=== PATIENT | male | born 1950 | race Caucasian/White ===

== ENCOUNTER 2016-05-20 19:41 | Emergency (ER) | payer SELFPAY ==
[2016-05-20 20:40] VITALS: BMI 31.8
[2016-05-20] MEDS ORDERED: Oxycodone/Acetaminophen 5/325 mg Tab PO STA (21:31)
--- NOTE | 2016-05-20 21:46 | ED PDOC ---
Arrival/HPI - General Chief Complaint: Back Pain Time Seen by Provider: 05/20/16 21:05 Historian: Patient, Family - History of Present Illness Narrative History of Present Illness (Text): 05/20/16 21:41 Gracie Willis is a 66 year old male, with a history of CAD, hypertension, asthma, and GERD, presents to the emergency department complaining of intermittent left lower back and flank pain throughout the day. Reports that pain initially presented with a non-productive cough and resolved transiently in the afternoon. However, states that back pain presented again at 5:30 p.m. which was worsened with coughing and deep inspirations. Denies any chest pain. Denies fever, chills, headache, dizziness, shortness of breath, nausea, vomiting , diarrhea, or any other complaints at this time. Time/Duration: 24 hours Symptom Onset: Gradual Symptom Course: Intermittent Severity Level: Mild Activities at Onset: Light Context: Home Past Medical History - Provider Review Nursing Documentation Reviewed: Yes - Infectious Disease Hx of Infectious Diseases: None - Tetanus Immunization Tetanus Immunization: Unknown - Cardiac Hx Cardiac Disorders: Yes Hx Hypertension: Yes - Pulmonary Hx Respiratory Disorders: Yes Hx Asthma: Yes - Neurological Hx Neurological Disorder: No - HEENT Hx HEENT Disorder: No (WEARS RX GLASSES) - Renal Hx Renal Disorder: No - Endocrine/Metabolic Hx Endocrine Disorders: No - Hematological/Oncological Hx Blood Disorders: No - Integumentary Hx Dermatological Disorder: No - Musculoskeletal/Rheumatological Hx Musculoskeletal Disorders: Yes Hx Falls: No Hx Fractures: Yes (LEFT THUMB WITH METAL IMPLANT) - Gastrointestinal Hx Gastrointestinal Disorders: Yes (CHRONS?) Hx Crohn's Disease: Yes Hx Gastroesophageal Reflux: Yes - Genitourinary/Gynecological Hx Genitourinary Disorders: No - Psychiatric Hx Anxiety: Yes Hx Depression: No Hx Emotional Abuse: No Hx Physical Abuse: No Hx Substance Use: No - Past Surgical History Past Surgical History: No Previous - Surgical History Hx Orthopedic Surgery: Yes (left thumb) Other/Comment: Tonsillectomy. - Anesthesia Hx Anesthesia: Yes - Suicidal Assessment Feels Threatened In Home Enviroment: No Family/Social History - Physician Review Nursing Documentation Reviewed: Yes Family/Social History: No Known Family HX Smoking Status: Former Smoker Hx Alcohol Use: No Hx Substance Use: No Hx Substance Use Treatment: No Allergies/Home Meds Allergies/Adverse Reactions: Allergies No Known Allergies Allergy (Verified 03/13/16 16:48) Home Medications: Home Meds Medication Instructions Recorded Confirmed Aspirin [Ecotrin] 325 mg PO DAILY 12/28/13 02/04/14 Famotidine 20 mg PO DAILY 12/28/13 02/04/14 Simvastatin 20 mg PO DIN 12/28/13 02/04/14 Alprazolam [Xanax] 1 tab PO PRN PRN 02/04/14 02/04/14 Review of Systems - Physician Review All systems were reviewed & negative as marked: Yes - Review of Systems Constitutional: Normal. absent: Fatigue, Fevers Respiratory: Cough. absent: SOB Cardiovascular: Normal. absent: Chest Pain, Palpitations Gastrointestinal: absent: Abdominal Pain, Diarrhea, Nausea, Vomiting Genitourinary Male: absent: Dysuria Musculoskeletal: Back Pain (left flank and left lower back pain ) Neurological: Normal. absent: Headache, Dizziness Psychiatric: Normal Physical Exam Vital Signs Reviewed: Yes Vital Signs Temp Pulse Resp BP Pulse Ox 05/21/16 00:33 98.4 F 77 17 127/83 97 05/20/16 22:15 98 F 84 18 138/90 98 05/20/16 20:44 98.2 F 05/20/16 20:41 91 H 18 120/75 97 Temperature: Afebrile Blood Pressure: Normal Pulse: Regular Respiratory Rate: Normal Appearance: Positive for: Well-Appearing, Non-Toxic, Comfortable Pain Distress: None Mental Status: Positive for: Alert and Oriented X 3 - Systems Exam Head: Present: Atraumatic, Normocephalic Pupils: Present: PERRL Extroacular Muscles: Present: EOMI Conjunctiva: Present: Normal Respiratory/Chest: Present: Clear to Auscultation, Good Air Exchange. No: Respiratory Distress, Accessory Muscle Use Cardiovascular: Present: Regular Rate and Rhythm, Normal S1, S2. No: Murmurs Abdomen: Present: Normal Bowel Sounds. No: Tenderness, Distention, Peritoneal Signs Back: Present: Normal Inspection. No: CVA Tenderness, Midline Tenderness, Paraspinal Tenderness Upper Extremity: Present: Normal Inspection. No: Cyanosis, Edema Lower Extremity: Present: Normal Inspection. No: Edema Neurological: Present: GCS=15, CN II-XII Intact, Speech Normal Skin: Present: Warm, Dry, Normal Color. No: Rashes Psychiatric: Present: Alert, Oriented x 3, Normal Insight, Normal Concentration Medical Decision Making ED Course and Treatment: 05/20/16 21:48 Impression: A 66 year old male who presents to the emergency department complaining of left flank pain and left lower back pain since earlier today. Plan: -- CT Chest and Abdomen pelvis -- Chest X-ray -- Percocet -- Urinalysis -- Reassess and disposition Progress Notes: 05/21/16 00:05 CT Abdomen Pelvis reviewed: IMPRESSION: 1. No CT evidence of urolithiasis. CT Chest results reviewed: IMPRESSION: Pulmonary nodules. For low-risk patients, no follow-up is necessary. For high- risk patients (smoking history or other known risk factors) recommend CT at 12 months and if unchanged, no further follow-up Patient states that symptoms have improved markedly post treatment. Patient is stable to be discharged home. Patient is advised to present back to emergency department for worsening symptoms and follow up with PMD within few days. Re-evaluation Time: 00:20 Reassessment Condition: Re-examined, Improved - Lab Interpretations Lab Results: Lab Results 05/20/16 21:50: Urine Color Yellow, Urine Appearance Slight-cloudy, Urine pH 7.0 , Ur Specific [place] 1.015, Urine Protein Negative, Urine Glucose (UA) Negative , Urine Ketones Negative, Urine Blood Trace-intact H, Urine Nitrate Negative, Urine Bilirubin Negative, Urine Urobilinogen 0.2, Ur Leukocyte Esterase Trace H , Urine RBC 1 - 3, Urine WBC 1 - 3, Ur Epithelial Cells 0 - 2, Urine Other Usperm I have reviewed the lab results: Yes - RAD Interpretation Narrative RAD Interpretations (Text): EXAM: CT Chest Without Intravenous Contrast. FINDINGS: Lungs: Minimal atelectasis. No consolidation. Several pulmonary nodules, up to 0.4 cm. Pleural space: No pneumothorax. No significant effusion. Heart: No cardiomegaly. No significant pericardial effusion. Bones/joints: No acute fracture. Soft tissues: Unremarkable. Vasculature: Unremarkable. No thoracic aortic aneurysm. Lymph nodes: No pathologically enlarged lymph nodes. IMPRESSION: 1. Pulmonary nodules. For low-risk patients, no follow-up is necessary. For high -risk patients (smoking history or other known risk factors) recommend CT at 12 months and if unchanged, no further follow-up. 2. Incidental/non-acute findings are described above. EXAM: CT Abdomen and Pelvis Without Intravenous Contrast. FINDINGS: ABDOMEN: Liver: Unremarkable. Gallbladder and bile ducts: No calcified stones. No ductal dilation. Pancreas: Unremarkable. No ductal dilation. Spleen: No splenomegaly. Adrenals: No mass. Kidneys and ureters: RIGHT renal cyst. No renal calculi. No hydronephrosis. Stomach and bowel: No definite mural thickening. Few minimally distended loops of small bowel, likely ileus. Appendix: Normal caliber. No inflammation. PELVIS: Bladder: Unremarkable. No stones. Reproductive: Enlarged prostate gland. ABDOMEN and PELVIS: Intraperitoneal space: No significant fluid collection. No free air. Bones/joints: No acute fracture. Soft tissues: Tiny umbilical hernia containing fat. Small RIGHT inguinal hernia containing fat. Vasculature: Mild atherosclerotic disease. No abdominal aortic aneurysm. Lymph nodes: No pathologically enlarged lymph nodes. IMPRESSION: 1. No CT evidence of urolithiasis. 2. Incidental/non-acute findings are described above. Radiology Orders: 05/20/16 22:12 CHEST,ABDOMEN, PELVIS W/O CONT [CT] Stat Discharging Machine Operator: Radiologist - Medication Orders Current Medication Orders: Discontinued Medications Ketorolac Tromethamine (Toradol) 30 mg IM ONCE ONE Stop: 05/20/16 22:48 Last Admin: 05/20/16 23:09 Dose: 30 MG IM Administration Charges Document 05/20/16 23:09 [facility] (Rec: 05/20/16 23:09 [id number] Injection Site MAR Injection Site Right Deltoid Charges for Administration # of IM Administrations 1 Morphine Sulfate (Morphine) 2 mg IM STAT STA Stop: 05/20/16 23:36 Last Admin: 05/21/16 00:18 Dose: 2 MG MAR Pain Assessment Document 05/21/16 00:18 [facility] (Rec: 05/21/16 00:18 [id number] Pain Reassessment Is this a pain reassessment? No Sleep Is patient sleeping during reassessment? No Presence of Pain Presence of Pain Yes Pain Scale Used Pain Scale Used Numeric Location Left, Right or Bilateral Left Upper or Lower Lower Pain Location Body Site Back Description Description Acute Intensity of Pain at present 8 Acceptable Level of Pain 0 Pain Behavior Irritability Rubbing Site Restlessness IM Administration Charges Document 05/21/16 00:18 [facility] (Rec: 05/21/16 00:18 [facility] [id number]) Charges for Administration # of IM Administrations 1 Oxycodone/Acetaminophen (Percocet 5/325 Mg Tab) 1 tab PO STAT STA Stop: 05/20/16 21:32 Last Admin: 05/20/16 21:41 Dose: 1 TAB - Scribe Statement The provider has reviewed the documentation as recorded by the Tk Wade Provider Attestation: All medical record entries made by the Tk were at my direction and personally dictated by me. I have reviewed the chart and agree that the record accurately reflects my personal performance of the history, physical exam, medical decision making, and the department course for this patient. I have also personally directed, reviewed, and agree with the discharge instructions and disposition. Disposition/Present on Arrival - Present on Arrival Any Indicators Present on Arrival: No History of DVT/PE: No History of Uncontrolled Diabetes: No Urinary Catheter: No History of Decub. Ulcer: No History Surgical Site Infection Following: None - Disposition Have Diagnosis and Disposition been Completed?: Yes Diagnosis: Back pain Disposition: HOME/ ROUTINE Disposition Time: 00:21 Patient Problems: Current Active Problems Problem Status Diagnosed Status asthmaticus Acute Discharge Instructions (ExitCare): Back Pain (ED) Prescriptions: Cyclobenzaprine [Cyclobenzaprine HCl] 10 mg PO TID #21 tab oxyCODONE/Acetaminophen [Percocet 5/325 mg Tab] 1 ea PO QID #12 tab Referrals: Keshia Green APN-[facility] [Primary Care Provider] - Follow up with primary
[2016-05-20 22:04] LABS: URINE BILIRUBIN NEGATIVE (NEGATIVE); URINE BLOOD TRACE-INTACT (NEGATIVE); URINE GLUCOSE (UA) NEGATIVE (NEGATIVE); URINE KETONE NEGATIVE (NEGATIVE); URINE LEUKOCYTE ESTERASE TRACE Leu/uL (NEGATIVE); URINE PROTEIN NEGATIVE mg/dL (<30 mg/dL); URINE UROBILINOGEN 0.2 E.U./dL (<1 E.U./dL)
[2016-05-20 22:06] LABS: URINE APPEARANCE SLIGHT-CLOUDY (CLEAR); URINE COLOR YELLOW (YELLOW)
[2016-05-20 22:47] LABS: URINE EPITHELIAL CELLS 0 - 2 /hpf (0-5)
[2016-05-20] MEDS ORDERED: Morphine 2 mg/ml ISec IM STA (23:35)
--- NOTE | 2016-05-20 23:56 | CT ---
EXAM: CT Chest Without Intravenous Contrast. CLINICAL HISTORY: 66 years old, male; Pain; Abdominal pain; Chest pain; Type not specified; Additional info: R/O stone TECHNIQUE: Axial computed tomography images of the chest without intravenous contrast. This CT exam was performed using one or more of the following dose reduction techniques: automated exposure control, adjustment of the mA and/or kV according to patient size, and/or use of iterative reconstruction technique. Coronal and sagittal reformatted images were created and reviewed. COMPARISON: No relevant prior studies available. FINDINGS: Lungs: Minimal atelectasis. No consolidation. Several pulmonary nodules, up to 0.4 cm. Pleural space: No pneumothorax. No significant effusion. Heart: No cardiomegaly. No significant pericardial effusion. Bones/joints: No acute fracture. Soft tissues: Unremarkable. Vasculature: Unremarkable. No thoracic aortic aneurysm. Lymph nodes: No pathologically enlarged lymph nodes. IMPRESSION: 1. Pulmonary nodules. For low-risk patients, no follow-up is necessary. For high-risk patients (smoking history or other known risk factors) recommend CT at 12 months and if unchanged, no further follow-up. 2. Incidental/non-acute findings are described above. EXAM: CT Abdomen and Pelvis Without Intravenous Contrast. CLINICAL HISTORY: 66 years old, male; Pain; Abdominal pain; Chest pain; Type not specified; Additional info: R/O stone TECHNIQUE: Axial computed tomography images of the abdomen and pelvis without intravenous contrast. This CT exam was performed using one or more of the following dose reduction techniques: automated exposure control, adjustment of the mA and/or kV according to patient size, and/or use of iterative reconstruction technique. Coronal and sagittal reformatted images were created and reviewed. COMPARISON: No relevant prior studies available. FINDINGS: ABDOMEN: Liver: Unremarkable. Gallbladder and bile ducts: No calcified stones. No ductal dilation. Pancreas: Unremarkable. No ductal dilation. Spleen: No splenomegaly. Adrenals: No mass. Kidneys and ureters: RIGHT renal cyst. No renal calculi. No hydronephrosis. Stomach and bowel: No definite mural thickening. Few minimally distended loops of small bowel, likely ileus. Appendix: Normal caliber. No inflammation. PELVIS: Bladder: Unremarkable. No stones. Reproductive: Enlarged prostate gland. ABDOMEN and PELVIS: Intraperitoneal space: No significant fluid collection. No free air. Bones/joints: No acute fracture. Soft tissues: Tiny umbilical hernia containing fat. Small RIGHT inguinal hernia containing fat. Vasculature: Mild atherosclerotic disease. No abdominal aortic aneurysm. Lymph nodes: No pathologically enlarged lymph nodes. IMPRESSION: 1. No CT evidence of urolithiasis. 2. Incidental/non-acute findings are described above.
[2016-05-21 00:33] VITALS: BP 127/83; PULSE 77; RESP 17; TEMP 98.4; O2SAT 97
== END 2016-05-21 00:37 | disposition home or self-care (01) ==
LOC: ED 19:41
DX: M54.9 Dorsalgia, unspecified (principal); I10 Essential (primary) hypertension; K21.9 Gastro-esophageal reflux disease without esophagitis; Z87.891 Personal history of nicotine dependence
CPT/HCPCS: 71250; 74176; 81001; 87086; 96372; 99283; J1885; J2270

== ENCOUNTER 2017-08-29 12:18 | Inpatient (IN) | payer MEDICAID, OTHER ==
--- NOTE | 2017-08-29 12:34 | ED PDOC ---
Arrival/HPI <Earsto Gutierrez - Last Filed: 08/29/17 12:34> - General Historian: Patient - History of Present Illness Time/Duration: Other (10 days) Symptom Onset: Gradual Symptom Course: Worsening Activities at Onset: Rest, Light Context: Home <José Manuel Sullivan - Last Filed: 08/29/17 14:21> - General Chief Complaint: Shortness Of Breath Time Seen by Provider: 08/29/17 12:33 - History of Present Illness Narrative History of Present Illness (Text): 08/29/17 12:40 A 67 year old male, whose past medical history includes asthma, presents to the emergency department with daughter who served as the product safety professional, with a complaint of 10 day duration worsening shortness of breath. He states that he has been having a productive cough with no relief of his symptoms despite taking his nebulizer treatments and Albuterol and Ventolin inhalers at home. He also complains of urinary frequency. He notes that he is a non-smoker, and quit smoking 7 years ago. The patient denies fevers, chills, headache, dizziness, chest pain, dyspnea on exertion, abdominal pain, nausea, vomiting, diarrhea, back pain, neck pain, bowel changes, or any other complaint. (José Manuel Sullivan) Past Medical History - Infectious Disease Hx of Infectious Diseases: None - Tetanus Immunization Tetanus Immunization: Unknown - Cardiac Hx Cardiac Disorders: Yes Hx Hypertension: Yes - Pulmonary Hx Respiratory Disorders: Yes Hx Asthma: Yes - Neurological HX Cerebrovascular Accident: Yes - HEENT Hx HEENT Disorder: No (WEARS RX GLASSES) - Renal Hx Renal Disorder: No - Endocrine/Metabolic Hx Endocrine Disorders: No - Hematological/Oncological Hx Blood Disorders: No - Integumentary Hx Dermatological Disorder: No - Musculoskeletal/Rheumatological Hx Musculoskeletal Disorders: Yes Hx Falls: No Hx Fractures: Yes (LEFT THUMB WITH METAL IMPLANT) - Gastrointestinal Hx Gastrointestinal Disorders: Yes (CHRONS?) Hx Crohn's Disease: Yes Hx Gastroesophageal Reflux: Yes - Genitourinary/Gynecological Hx Genitourinary Disorders: No - Psychiatric Hx Depression: No Hx Emotional Abuse: No Hx Physical Abuse: No Hx Substance Use: No - Past Surgical History Past Surgical History: No Previous - Surgical History Hx Orthopedic Surgery: Yes (left thumb) Other/Comment: Tonsillectomy. - Anesthesia Hx Anesthesia: Yes - Suicidal Assessment Feels Threatened In Home Enviroment: No <Erasto Gutierrez Last Filed: 08/29/17 12:34> - Provider Review Nursing Documentation Reviewed: Yes <José Manuel Sullivan Last Filed: 08/29/17 14:21> Family/Social History Smoking Status: Former Smoker Hx Alcohol Use: No Hx Substance Use: No Hx Substance Use Treatment: No <Erasto Gutierrez Last Filed: 08/29/17 12:34> - Physician Review Nursing Documentation Reviewed: Yes Family/Social History: No Known Family HX <José Manuel Sullivan Last Filed: 08/29/17 14:21> Allergies/Home Meds <Erasto Gutierrez Last Filed: 08/29/17 12:34> <José Manuel Sullivan Filed: 08/29/17 14:21> Allergies/Adverse Reactions: Allergies No Known Allergies Allergy (Verified 03/13/16 16:48) Home Medications: Home Meds Medication Instructions Recorded Confirmed Aspirin [Ecotrin] 325 mg PO DAILY 12/28/13 08/29/17 Famotidine [Pepcid] 20 mg PO DAILY 08/29/17 08/29/17 Lisinopril [Zestril] 10 mg PO DAILY 08/29/17 08/29/17 Metoprolol Succinate [Toprol Xl] 25 mg PO DAILY 08/29/17 08/29/17 Review of Systems - Physician Review All systems were reviewed & negative as marked: Yes - Review of Systems Constitutional: absent: Fevers, Night Sweats Respiratory: SOB, Cough Cardiovascular: absent: Chest Pain Gastrointestinal: absent: Abdominal Pain, Stool Changes, Diarrhea, Nausea, Vomiting Genitourinary Male: Frequency Musculoskeletal: absent: Back Pain, Neck Pain Neurological: absent: Headache, Dizziness <José Manuel Sullivan Last Filed: 08/29/17 14:21> Physical Exam Vital Signs Reviewed: Yes Temperature: Afebrile Blood Pressure: Hypertensive Pulse: Tachycardic Respiratory Rate: Normal Appearance: Positive for: Well-Appearing, Non-Toxic, Comfortable Pain Distress: None Mental Status: Positive for: Alert and Oriented X 3 - Systems Exam Head: Present: Atraumatic, Normocephalic Pupils: Present: PERRL Extroacular Muscles: Present: EOMI Conjunctiva: Present: Normal Mouth: Present: Moist Mucous Membranes Neck: Present: Normal Range of Motion Respiratory/Chest: Present: Respiratory Distress (Moderate distress.), Accessory Muscle Use, Wheezes (Severe wheezing throughout), Decreased Breath Sounds, Retracting, Rhonchi (severe rhonchi throughout) Cardiovascular: Present: Regular Rate and Rhythm, Normal S1, S2. No: Murmurs Abdomen: No: Tenderness, Distention, Peritoneal Signs Back: Present: Normal Inspection Upper Extremity: Present: Normal Inspection. No: Cyanosis, Edema Lower Extremity: Present: Normal Inspection. No: Edema Neurological: Present: GCS=15, CN II-XII Intact, Speech Normal Skin: Present: Warm, Dry, Normal Color. No: Rashes Psychiatric: Present: Alert, Oriented x 3, Normal Insight, Normal Concentration <José Manuel Sullivan - Last Filed: 08/29/17 14:21> Vital Signs Temp Pulse Resp BP Pulse Ox 08/29/17 13:15 97 H 18 116/81 99 08/29/17 13:00 24 99 08/29/17 12:53 99.5 F 08/29/17 12:25 98.0 F 104 H 20 124/112 H 94 L Medical Decision Making <Erasto Gutierrez - Last Filed: 08/29/17 12:34> - Lab Interpretations I have reviewed the lab results: Yes - RAD Interpretation Spool Fixer: ED Physician - EKG Interpretation Interpreted by ED Physician: Yes Type: 12 lead EKG <José Manuel Sullivan - Last Filed: 08/29/17 14:21> ED Course and Treatment: 08/29/17 12:51 Impression: A 67 year old male presents to the emergency department with a complaint of 10 day duration worsening shortness of breath and productive cough. Plan: -- EKG -- Chest X-ray -- Labs -- Blood/ Urine Culture -- Urinalysis -- Duoneb, Rocephin, SOLU-Medrol -- Reassess and disposition Progress Notes: 08/29/17 12:58 EKG shows sinus tachycardia rate approximately [address] or T-wave changes Chest X-ray Dictator : Scot Flores MD Report Date : 08/29/2017 14:10:12 IMPRESSION: No active disease. No significant interval change compared to the prior examination(s). (José Manuel Sullivan) - Lab Interpretations Lab Results: 08/29/17 12:39 08/29/17 12:44 Lab Results 08/29/17 12:44: Urine Color Light yellow, Urine Appearance Clear, Urine pH 6.0, Ur Specific [place] 1.010, Urine Protein Negative, Urine Glucose (UA) Negative, Urine Ketones Negative, Urine Blood Trace-intact H, Urine Nitrate Negative, Urine Bilirubin Negative, Urine Urobilinogen 0.2, Ur Leukocyte Esterase Negative , Urine RBC 0 - 2, Urine WBC Negative, Ur Epithelial Cells None, Urine Bacteria None 08/29/17 12:44: Sodium 140, Potassium 4.2, Chloride 102, Carbon Dioxide 25, Anion Gap 18, BUN 13, Creatinine 1.3, Est GFR ( Amer) > 60, Est GFR (Non- Af Amer) 55, Random Glucose 103, Calcium 9.6, Magnesium 2.1, Total Bilirubin 1.0 , AST 40, ALT 50, Alkaline Phosphatase 55, Lactate Dehydrogenase 494, Total Creatine Kinase 391 H, CK-MB (CK-2) 1.5, CK-MB (CK-2) % Cancelled, Troponin I < 0.01, Total Protein 7.7, Albumin 4.4, Globulin 3.4, Albumin/Globulin Ratio 1.3 08/29/17 12:39: WBC 5.0, RBC 5.25, Hgb 15.8, Hct 46.2, MCV 88.0, MCH 30.1, MCHC 34.2, RDW 14.0, Plt Count 200, MPV 10.3, Gran % 36.3 L, Lymph % (Auto) 35.6 H, [place] % (Auto) 7.5 H, Eos % (Auto) 19.8 H, Baso % (Auto) 0.8, Gran # 1.80, Lymph # (Auto) 1.8, [place] # (Auto) 0.4, Eos # (Auto) 1.0 H, Baso # (Auto) 0.04 - RAD Interpretation Radiology Orders: 08/29/17 12:39 CHEST PORTABLE [RAD] Stat Chest 1 view shows no infiltrate effusion or cardiomegaly (Tolerico,José Manuel) - Medication Orders Current Medication Orders: Ipratropium [place] (Atrovent) 0.5 mg IH [id number] EDWINA Levalbuterol HCl (Xopenex) 0.63 mg IH [id number] PRN PRN Reason: Shortness of Breath Levalbuterol HCl (Xopenex) 0.63 mg IH [id number] PRN PRN Reason: Shortness of Breath Methylprednisolone (Solu-Medrol) 40 mg IVP Q12 EDWINA Discontinued Medications Albuterol Sulfate (Albuterol 0.083% Inhal Vijaya (2.5 Mg/3 Ml) Ud) 2.5 mg INH STAT STA Stop: 08/29/17 13:04 Last Admin: 08/29/17 13:15 Dose: 2.5 mg Albuterol Sulfate (Albuterol 0.083% Inhal Vijaya (2.5 Mg/3 Ml) Ud) 2.5 mg INH STAT STA Stop: 08/29/17 13:28 Last Admin: 08/29/17 13:45 Dose: 2.5 mg Albuterol/Ipratropium (Duoneb 3 Mg/0.5 Mg (3 Ml) Ud) 3 ml IH STAT STA Stop: 08/29/17 12:40 Last Admin: 08/29/17 12:47 Dose: 3 ml Ceftriaxone Sodium (Rocephin 1 Gram Ivpb) 1 gm in 100 mls @ 200 mls/hr IVPB STAT STA PRN Reason: Protocol Stop: 08/29/17 13:15 Last Admin: 08/29/17 13:15 Dose: 200 mls/hr eMAR Start Stop Document 08/29/17 13:15 JAIR (Rec: 08/29/17 13:15 JAIR [id number]) Intravenous Solution Start Date 08/29/17 Start Time 13:15 End Date 08/29/17 End time 13:45 Total Infusion Time 30 Methylprednisolone (Solu-Medrol) 125 mg IVP STAT STA Stop: 08/29/17 12:40 Last Admin: 08/29/17 12:47 Dose: 125 mg IVP Administration Document 08/29/17 12:47 JAIR (Rec: 08/29/17 12:47 JAIR [id number]) Charges for Administration # of IVP Administrations 1 <Erasto Gutierrez - Last Filed: 08/29/17 12:34> - Scribe Statement The provider has reviewed the documentation as recorded by the Scribe <José Manuel Sullivan - Last Filed: 08/29/17 14:21> - Scribe Statement Roro Schmitz Provider Scribe Attestation: All medical record entries made by the Scribe were at my direction and personally dictated by me. I have reviewed the chart and agree that the record accurately reflects my personal performance of the history, physical exam, medical decision making, and the department course for this patient. I have also personally directed, reviewed, and agree with the discharge instructions and disposition. (José Manuel Sullivan) Disposition/Present on Arrival - Present on Arrival History of DVT/PE: No History of Uncontrolled Diabetes: No Urinary Catheter: No History of Decub. Ulcer: No History Surgical Site Infection Following: None <Erasto Gutierrez - Last Filed: 08/29/17 12:34> - Present on Arrival Any Indicators Present on Arrival: No History of DVT/PE: No History of Uncontrolled Diabetes: No Urinary Catheter: No History of Decub. Ulcer: No - Disposition Have Diagnosis and Disposition been Completed?: Yes Disposition Time: 13:29 Patient Plan: Observation <José Manuel Sullivan - Last Filed: 08/29/17 14:21> - Disposition Diagnosis: Status asthmaticus Disposition: HOSPITALIZED Patient Problems: Current Active Problems Problem Status Onset Status asthmaticus Acute Condition: FAIR
[2017-08-29] MEDS ORDERED: Albuterol-Ipratrop 3 mg / 0.5 (3 ml) UD IH STA (12:39)
[2017-08-29 12:41] VITALS: BMI 23.3
[2017-08-29] MEDS ORDERED: cefTRIAXone 1 gm 1 GM/100 ML BAG IVPB STA (12:46)
[2017-08-29 13:01] LABS: BASO # 0.04 K/mm3 (0.0-2.0); BASO % 0.8 % (0.0-3.0); EOS % 19.8 % (1.5-5.0); GRAN # 1.8 (1.4-6.5); GRAN % 36.3 % (50.0-68.0); HEMOGLOBIN 15.8 g/dL (14.0-18.0); LYMPH # 1.8 (1.2-3.4); LYMPH % 35.6 % (22.0-35.0); MEAN CORPUSCULAR HEMOGLOBIN 30.1 pg (25.0-35.0); MEAN CORPUSCULAR HGB CONC 34.2 g/dl (31.0-37.0); MEAN PLATELET VOLUME 10.3 fl (7.0-11.0); MONO # 0.4 (0.1-0.6); MONO % 7.5 % (1.0-6.0); RBC 5.25 10^6/uL (3.5-6.1)
[2017-08-29] MEDS ORDERED: Albuterol 0.083% Inhal Sol (2.5 mg/3 mL) UD INH STA ×2 (13:03→13:27)
[2017-08-29 13:05] LABS: URINE APPEARANCE CLEAR (CLEAR); URINE BILIRUBIN NEGATIVE (NEGATIVE); URINE BLOOD TRACE-INTACT (NEGATIVE); URINE COLOR LIGHT YELLOW (YELLOW); URINE GLUCOSE (UA) NEGATIVE (NEGATIVE); URINE LEUKOCYTE ESTERASE NEGATIVE Leu/uL (NEGATIVE); URINE PROTEIN NEGATIVE mg/dL (<30 mg/dL); URINE UROBILINOGEN 0.2 E.U./dL (<1 E.U./dL)
[2017-08-29 13:10] LABS: URINE RBC 0 - 2 /hpf (0-2); URINE WBC NEGATIVE /hpf (0-6)
[2017-08-29 13:20] LABS: ALB/GLOB RATIO 1.3 (1.1-1.8); ALBUMIN 4.4 g/dL (3.0-4.8); ALT/SGPT 50 U/L (7-56); AST/SGOT 40 U/L (17-59); BLOOD UREA NITROGEN 13 mg/dL (7-21); CALCIUM 9.6 mg/dL (8.4-10.5); GFR AFRICAN-AMERICAN > 60; GFR NON-AFRICAN AMERICAN 55
[2017-08-29 13:30] LABS: TROPONIN I < 0.01 ng/mL
[2017-08-29] MEDS ORDERED: Levalbuterol 0.63 MG/3 ML Inhal Soln UD IH PRN (14:08)
--- NOTE | 2017-08-29 14:11 | RAD ---
HISTORY: Shortness of breath COMPARISON: 03/13/2016. FINDINGS: LUNGS: No active pulmonary disease. PLEURA: No significant pleural effusion identified, no pneumothorax apparent. CARDIOVASCULAR: No radiographic findings to suggest acute or significant cardiovascular disease. OSSEOUS STRUCTURES: No significant abnormalities. VISUALIZED UPPER ABDOMEN: Normal. OTHER FINDINGS: None. IMPRESSION: No active disease. No significant interval change compared to the prior examination(s).
[2017-08-29 14:14] LABS: CK-MB 1.5 ng/mL (0.0-3.6)
--- NOTE | 2017-08-29 15:42 | CT ---
PROCEDURE: CT Abdomen and Pelvis without intravenous contrast HISTORY: left flank pain with dysuria and increased frequency COMPARISON: 05/20/2016. CT thorax abdomen and pelvis. TECHNIQUE: Unenhanced Radiation dose: Total exam DLP = 646.97 mGy-cm. This CT exam was performed using one or more of the following dose reduction techniques: Automated exposure control, adjustment of the mA and/or kV according to patient size, and/or use of iterative reconstruction technique. FINDINGS: LOWER THORAX: Unremarkable. LIVER: Unremarkable. No gross lesion or ductal dilatation. GALLBLADDER AND BILE DUCTS: Unremarkable. PANCREAS: Unremarkable. No gross lesion or ductal dilatation. SPLEEN: Unremarkable. ADRENALS: Unremarkable. No mass. KIDNEYS AND URETERS: Unremarkable. No hydronephrosis. No solid mass. Stable right renal cyst VASCULATURE: Unremarkable. No aortic aneurysm. BOWEL: Unremarkable. No obstruction. No gross mural thickening. APPENDIX: Unremarkable. Normal appendix. PERITONEUM: Unremarkable. No free fluid. No free air. LYMPH NODES: Unremarkable. No enlarged lymph nodes. BLADDER: Unremarkable. REPRODUCTIVE: Enlarged prostate. BONES: No acute fracture. OTHER FINDINGS: None. IMPRESSION: No significant or acute findings to account for/ related to the clinical presentation. No significant interval change compared to the prior examination(s).
[2017-08-29] MEDS ORDERED: Pneumococcal 23-Valent Vaccine IM ONE (15:55)
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
[2017-08-29] MEDS: Azithromycin 500MG/NS 250ml 500 MG/250 ML BAG IVPB SCH (16:31)
[2017-08-29] MEDS ORDERED: Ipratropium 0.02% Inhal Soln (0.5 mg/2.5 ml) UD IH SCH (20:00)
[2017-08-29] MEDS: Ipratropium 0.02% Inhal Soln (0.5 mg/2.5 ml) UD IH SCH (21:08)
[2017-08-29] MEDS: MethylPREDNISolone 40 mg Vial IVP SCH (22:06)
[2017-08-30] MEDS: Ipratropium 0.02% Inhal Soln (0.5 mg/2.5 ml) UD IH SCH ×5 (02:31→20:17)
[2017-08-30] MEDS: Levalbuterol 0.63 MG/3 ML Inhal Soln UD IH PRN ×4 (02:31→20:17)
[2017-08-30 08:04] LABS: HDL CHOLESTEROL 56 mg/dL (29-60)
[2017-08-30 08:15] LABS: LDL CHOLESTEROL 162 mg/dL (0-129)
--- NOTE | 2017-08-30 08:56 | CARD ---
APPROVED REPORT EKG Measurement Heart [id number] <Conclusion> Sinus tachycardia Small q lll No change nexcept faster rate.
[2017-08-30] MEDS: Azithromycin 500MG/NS 250ml 500 MG/250 ML BAG IVPB SCH (10:58)
[2017-08-30] MEDS: Pantoprazole 40 mg EC Tab PO SCH (10:59)
[2017-08-30] MEDS: MethylPREDNISolone 40 mg Vial IVP SCH ×2 (10:59→22:59)
[2017-08-30] MEDS: Metoprolol Succinate 25 mg XL Tab PO SCH (11:00)
[2017-08-30] MEDS ORDERED: guaiFENesin DM 200 mg-20 mg/10 ml UD PO PRN (14:25)
--- NOTE | 2017-08-30 14:44 | CP.PCM.PN ---
<Jaya Melo - Last Filed: 08/30/17 14:53> Subjective - Date & Time of Evaluation Date of Evaluation: 08/30/17 Time of Evaluation: 06:00 - Subjective Subjective: Patient seen and examined at bedside in no acute distress. States his breathing is improving and his coughing has improved. Denies chest pain, shortness of breath, abdominal pain, nausea, vomiting, diarrhea, fevers, chills, diarrhea, headache. Objective - Vital Signs/Intake and Output Vital Signs (last 24 hours): Temp Pulse Resp BP Pulse Ox 98.3 F 100 H 20 135/86 95 08/30/17 06:00 08/30/17 11:00 08/30/17 06:00 08/30/17 11:00 08/30/17 06:00 Intake and Output: 08/30/17 08/30/17 06:59 18:59 Intake Total 420 Balance 420 - Medications Medications: Current Medications Acetaminophen (Tylenol 325mg Tab) 650 mg PO Q6H PRN PRN Reason: Fever >100.4 F Atorvastatin Calcium (Lipitor) 40 mg PO DIN [facility] Guaifenesin/Dextromethorphan (Robitussin Dm) 10 ml PO Q4H PRN PRN Reason: Cough Heparin Sodium (Porcine) (Heparin) 5,000 units SC Q12 [facility] PRN Reason: Protocol Last Admin: 08/30/17 10:59 Dose: 5,000 units Azithromycin (Zithromax 500mg In Ns) 500 mg in 250 mls @ 167 mls/hr IVPB DAILY [facility] PRN Reason: Protocol Last Admin: 08/30/17 10:58 Dose: 167 mls/hr Ipratropium [place] (Atrovent) 0.5 mg IH [id number] [facility] Last Admin: 08/30/17 13:24 Dose: 0.5 mg Levalbuterol HCl (Xopenex) 0.63 mg IH [id number] PRN PRN Reason: Shortness of Breath Last Admin: 08/30/17 13:25 Dose: 0.63 mg Levalbuterol HCl (Xopenex) 0.63 mg IH [id number] PRN PRN Reason: Shortness of Breath Lisinopril (Zestril) 10 mg PO DAILY [facility] Last Admin: 08/30/17 10:59 Dose: 10 mg Methylprednisolone (Solu-Medrol) 40 mg IVP Q12 [facility] Last Admin: 08/30/17 10:59 Dose: 40 mg Metoprolol Succinate (Toprol Xl) 25 mg PO DAILY [facility] Last Admin: 08/30/17 11:00 Dose: 25 mg Pantoprazole Sodium (Protonix Ec Tab) 40 mg PO 0600 [facility] Last Admin: 08/30/17 10:59 Dose: 40 mg - Head Exam Head Exam: ATRAUMATIC, NORMAL INSPECTION - Eye Exam Eye Exam: EOMI, Normal appearance - ENT Exam ENT Exam: Mucous Membranes Moist - Neck Exam Neck Exam: Normal Inspection - Respiratory Exam Respiratory Exam: Wheezes, NORMAL BREATHING PATTERN. absent: Clear to Ausculation Bilateral, Rhonchi - Cardiovascular Exam Cardiovascular Exam: REGULAR RHYTHM, +S1, +S2 - GI/Abdominal Exam GI & Abdominal Exam: Soft, Normal Bowel Sounds - Extremities Exam Extremities Exam: Normal Inspection - Back Exam Back Exam: NORMAL INSPECTION - Neurological Exam Neurological Exam: Alert, Awake, Oriented x3 - Psychiatric Exam Psychiatric exam: Normal Affect, Normal Mood - Skin Skin Exam: Normal Color, Warm Assessment and Plan - Assessment and Plan (Free Text) Assessment: Patient is a 67 M with history hypertension, hyperlipidemia, asthma (never intubated), who presents with complaints of shortness of breath and productive cough for ten days. Plan: Asthma exacerbation -Xopenex q6 -Atrovent q6 EDWINA, q4 PRN -Solumedrol 40 q12 -Azithromax -Blood cx negative after 24 hours -Urine cx negative -procalcitonin negative Left flank pain with dysuria and urinary frequency -CT abdomen/pelvis negative for nephrolithiasis -Tylenol for pain control HTN -Continue home lisinopril and metroprolol -Monitor with vitals History of hyperlipidemia -Lipid panel reveals hyperlipidemia -ACSVD score >10%. Lipitor 40 started; will monitor liver enzymes DVT/GI ppx: Protonix/Heparin <Carlos Enrique Youngblood - Last Filed: 08/30/17 15:28> Objective - Vital Signs/Intake and Output Vital Signs (last 24 hours): Temp Pulse Resp BP Pulse Ox 98.6 F 102 H 20 107/71 94 L 08/30/17 15:24 08/30/17 15:24 08/30/17 15:24 08/30/17 15:24 08/30/17 15:24 - Medications Medications: Current Medications Acetaminophen (Tylenol 325mg Tab) 650 mg PO Q6H PRN PRN Reason: Fever >100.4 F Atorvastatin Calcium (Lipitor) 40 mg PO DIN [facility] Guaifenesin/Dextromethorphan (Robitussin Dm) 10 ml PO Q4H PRN PRN Reason: Cough Heparin Sodium (Porcine) (Heparin) 5,000 units SC Q12 [facility] PRN Reason: Protocol Last Admin: 08/30/17 10:59 Dose: 5,000 units Azithromycin (Zithromax 500mg In Ns) 500 mg in 250 mls @ 167 mls/hr IVPB DAILY [facility] PRN Reason: Protocol Last Admin: 08/30/17 10:58 Dose: 167 mls/hr Ipratropium [place] (Atrovent) 0.5 mg IH [id number] [facility] Last Admin: 08/30/17 13:24 Dose: 0.5 mg Levalbuterol HCl (Xopenex) 0.63 mg IH [id number] PRN PRN Reason: Shortness of Breath Last Admin: 08/30/17 13:25 Dose: 0.63 mg Levalbuterol HCl (Xopenex) 0.63 mg IH [id number] PRN PRN Reason: Shortness of Breath Lisinopril (Zestril) 10 mg PO DAILY [facility] Last Admin: 08/30/17 10:59 Dose: 10 mg Methylprednisolone (Solu-Medrol) 40 mg IVP Q12 [facility] Last Admin: 08/30/17 10:59 Dose: 40 mg Metoprolol Succinate (Toprol Xl) 25 mg PO DAILY [facility] Last Admin: 08/30/17 11:00 Dose: 25 mg Pantoprazole Sodium (Protonix Ec Tab) 40 mg PO 0600 [facility] Last Admin: 08/30/17 10:59 Dose: 40 mg Attending/Attestation - Attestation I have personally seen and examined this patient.: Yes I have fully participated in the care of the patient.: Yes I have reviewed all pertinent clinical information, including history, physical exam and plan: Yes Notes (Text): 08/30/17 15:27 67 year old male with past medical history of hypertension, dyslipidemia and asthma who presented with asthma exacerbation. Continue with solumedrol, xopenex and azithromycin. Will keep same dose steroids today. He also complained of left flank pain with dysuria. UA and CT abd/pelvis is negative. Continue with home medications for hypertension. Statin started for dyslipidemia. Carlos Enrique Youngblood MD Hospitalist.
[2017-08-31] MEDS: Ipratropium 0.02% Inhal Soln (0.5 mg/2.5 ml) UD IH SCH ×5 (02:40→20:20)
--- NOTE | 2017-08-31 05:39 | CP.PCM.PN ---
<Joe Galeana - Last Filed: 08/31/17 16:24> Subjective - Date & Time of Evaluation Date of Evaluation: 08/31/17 Time of Evaluation: 05:37 - Subjective Subjective: Joe Galeana DO - PGY1 IM RESIDENT - MEDICINE PROGRESS NOTE Pt. seen this AM at bedside; nursing reports no acute event overnight. Nursing stated patient has decreased SOB and chest tightness. He is still complaining of SOB however does report mild improvement. Patient reported improvement in cough and feeling better overall. Continues to complain of L flank pain w/ inspiration. C/o headache during breathing treatment. Denies: Lightheadedness, BV, CP, Palp, Abd Pain, NVDC, LE weakness, numbness. Objective - Vital Signs/Intake and Output Vital Signs (last 24 hours): Temp Pulse Resp BP Pulse Ox 97.8 F 94 H 20 132/87 96 08/30/17 21:56 08/30/17 21:56 08/30/17 21:56 08/30/17 21:56 08/30/17 21:56 Intake and Output: 08/30/17 08/31/17 18:59 06:59 Intake Total 720 Balance 720 - Medications Medications: Current Medications Acetaminophen (Tylenol 325mg Tab) 650 mg PO Q6H PRN PRN Reason: Fever >100.4 F Atorvastatin Calcium (Lipitor) 40 mg PO DIN [facility] Last Admin: 08/30/17 17:25 Dose: 40 mg Guaifenesin/Dextromethorphan (Robitussin Dm) 10 ml PO Q4H PRN PRN Reason: Cough Last Admin: 08/30/17 19:13 Dose: 10 ml Heparin Sodium (Porcine) (Heparin) 5,000 units SC Q12 [facility] PRN Reason: Protocol Last Admin: 08/30/17 22:59 Dose: 5,000 units Azithromycin (Zithromax 500mg In Ns) 500 mg in 250 mls @ 167 mls/hr IVPB DAILY [facility] PRN Reason: Protocol Last Admin: 08/30/17 10:58 Dose: 167 mls/hr Ipratropium [place] (Atrovent) 0.5 mg IH [id number] [facility] Last Admin: 08/31/17 02:40 Dose: 0.5 mg Levalbuterol HCl (Xopenex) 0.63 mg IH [id number] PRN PRN Reason: Shortness of Breath Last Admin: 08/30/17 20:17 Dose: 0.63 mg Levalbuterol HCl (Xopenex) 0.63 mg IH [id number] PRN PRN Reason: Shortness of Breath Lisinopril (Zestril) 10 mg PO DAILY [facility] Last Admin: 08/30/17 10:59 Dose: 10 mg Methylprednisolone (Solu-Medrol) 40 mg IVP Q12 [facility] Last Admin: 08/30/17 22:59 Dose: 40 mg Metoprolol Succinate (Toprol Xl) 25 mg PO DAILY [facility] Last Admin: 08/30/17 11:00 Dose: 25 mg Pantoprazole Sodium (Protonix Ec Tab) 40 mg PO 0600 [facility] Last Admin: 08/30/17 10:59 Dose: 40 mg - Constitutional Appears: Well, No Acute Distress - Head Exam Head Exam: ATRAUMATIC, NORMOCEPHALIC - Eye Exam Eye Exam: EOMI. absent: Conjunctival injection, Scleral icterus - ENT Exam ENT Exam: Mucous Membranes Moist - Respiratory Exam Respiratory Exam: Prolonged Expiratory Phase, Rhonchi, Wheezes (diffuse all tabor) - Cardiovascular Exam Cardiovascular Exam: REGULAR RHYTHM, +S1, +S2 - GI/Abdominal Exam GI & Abdominal Exam: Soft, Tenderness, Normal Bowel Sounds - Extremities Exam Extremities Exam: absent: Pedal Edema Additional comments: 2+ DP/PT BL - Neurological Exam Neurological Exam: Alert, Awake, CN II-XII Intact, Oriented x3 - Psychiatric Exam Psychiatric exam: Normal Affect, Normal Mood - Skin Skin Exam: Dry, Intact, Warm Assessment and Plan - Assessment and Plan (Free Text) Assessment: Patient is a 67 M with history hypertension, hyperlipidemia, asthma (never intubated), who presents with complaints of shortness of breath and productive cough for ten days. Plan: Asthma exacerbation Increased frequency Xopenex q4 EDWINA, q2 PRN Increased frequency Atrovent q6 [facility], q4 PRN Cont Solumedrol 40 q12 Cont Azithromax D4 Blood cx negative 2/2 after 48 hours Procalcitonin negative Left flank pain with dysuria and urinary frequency UCx negative CT abdomen/pelvis negative for nephrolithiasis Tylenol for pain control HTN Continue home lisinopril and metroprolol Monitor vitals History of hyperlipidemia Lipid panel reveals hyperlipidemia ACSVD score >10%. Cont. Lipitor 40 QD, will monitor liver enzymes DVT/GI ppx: Protonix/Heparin Dispo: Pt. to follow up w/ PMD Keshia Green NP. Case discussed w/ attending Dr. Mike Galeana DO - PGY1 Internal Medicine Resident - IM <Sam Mckeon - Last Filed: 09/02/17 12:31> Objective - Vital Signs/Intake and Output Vital Signs (last 24 hours): Temp Pulse Resp BP Pulse Ox 97.7 F 80 20 116/75 97 09/01/17 06:00 09/01/17 09:14 09/01/17 06:00 09/01/17 09:14 09/01/17 06:00 - Labs Labs: 08/31/17 07:35 08/31/17 07:35 Attending/Attestation - Attestation I have personally seen and examined this patient.: Yes I have fully participated in the care of the patient.: Yes I have reviewed all pertinent clinical information, including history, physical exam and plan: Yes Notes (Text): 09/02/17 12:29 Medical record note made by the resident after discussion with my direction and input after the patient was personally seen and examined by me. I have reviewed the chart and agree that the record accurately reflects by personal performance of the history, physical exam, data review, and medical decision-making, in the course for the patient. I have also personally directed the plan of care. 67 M with history hypertension, hyperlipidemia, asthma (never intubated), who presents with complaints of shortness of breath and productive cough for ten days found to be wheezing on physical examination, (acute asthma exacerbation), still wheezing, will continue Neb/Steroid and antibiotics.
[2017-08-31] MEDS: Pantoprazole 40 mg EC Tab PO SCH (05:48)
[2017-08-31 08:18] LABS: GRAN # 7.92 (1.4-6.5); GRAN % 84.4 % (50.0-68.0); HEMOGLOBIN 14.8 g/dL (14.0-18.0); LYMPH # 1.1 (1.2-3.4); LYMPH % 11.4 % (22.0-35.0); MEAN CELL VOLUME 88.7 fl (80.0-105.0); MEAN CORPUSCULAR HEMOGLOBIN 29.8 pg (25.0-35.0); MEAN CORPUSCULAR HGB CONC 33.6 g/dl (31.0-37.0); MEAN PLATELET VOLUME 10.6 fl (7.0-11.0); MONO # 0.4 (0.1-0.6); MONO % 4.2 % (1.0-6.0); RBC 4.97 10^6/uL (3.5-6.1); RED CELL DISTRIBUTION WIDTH 13.9 % (11.5-14.5); WHITE BLOOD COUNT 9.4 10^3/ul (4.5-11.0)
[2017-08-31 08:31] LABS: ALB/GLOB RATIO 1.2 (1.1-1.8); ALBUMIN 4.1 g/dL (3.0-4.8); ALT/SGPT 39 U/L (7-56); AST/SGOT 22 U/L (17-59); BLOOD UREA NITROGEN 26 mg/dL (7-21); CALCIUM 9.3 mg/dL (8.4-10.5); GFR AFRICAN-AMERICAN > 60; GFR NON-AFRICAN AMERICAN > 60
[2017-08-31] MEDS ORDERED: Levalbuterol 0.63 MG/3 ML Inhal Soln UD IH PRN (09:58)
[2017-08-31] MEDS ORDERED: Ipratropium 0.02% Inhal Soln (0.5 mg/2.5 ml) UD IH PRN (09:59)
[2017-08-31] MEDS: MethylPREDNISolone 40 mg Vial IVP SCH ×2 (11:35→22:12)
[2017-08-31] MEDS: Metoprolol Succinate 25 mg XL Tab PO SCH (11:39)
[2017-08-31] MEDS: Azithromycin 500MG/NS 250ml 500 MG/250 ML BAG IVPB SCH (11:43)
[2017-08-31] MEDS ORDERED: Levalbuterol 0.63 MG/3 ML Inhal Soln UD IH SCH (15:30)
[2017-08-31] MEDS: Levalbuterol 0.63 MG/3 ML Inhal Soln UD IH SCH ×2 (15:55→20:20)
[2017-09-01] MEDS: Levalbuterol 0.63 MG/3 ML Inhal Soln UD IH SCH ×5 (00:30→16:14)
[2017-09-01] MEDS: Ipratropium 0.02% Inhal Soln (0.5 mg/2.5 ml) UD IH SCH ×5 (00:30→16:14)
[2017-09-01] MEDS: Pantoprazole 40 mg EC Tab PO SCH (06:14)
--- NOTE | 2017-09-01 06:59 | CP.PCM.PN ---
Subjective - Date & Time of Evaluation Date of Evaluation: 09/01/17 Time of Evaluation: 06:56 - Subjective Subjective: Joe Galeana DO - PGY 1 IM PIPING DESIGN SPECIALIST - MEDICINE PROGRESS NOTE Objective - Vital Signs/Intake and Output Vital Signs (last 24 hours): Temp Pulse Resp BP Pulse Ox 98.1 F 92 H 22 115/75 95 08/31/17 22:00 08/31/17 22:00 08/31/17 22:00 08/31/17 22:00 08/31/17 22:00 - Medications Medications: Current Medications Acetaminophen (Tylenol 325mg Tab) 650 mg PO Q6H PRN PRN Reason: Fever >100.4 F Atorvastatin Calcium (Lipitor) 40 mg PO DIN [facility] Last Admin: 08/31/17 17:55 Dose: 40 mg Azithromycin (Zithromax) 500 mg PO DAILY [facility] Stop: 09/01/17 14:31 Guaifenesin/Dextromethorphan (Robitussin Dm) 10 ml PO Q4H PRN PRN Reason: Cough Last Admin: 08/30/17 19:13 Dose: 10 ml Heparin Sodium (Porcine) (Heparin) 5,000 units SC Q12 [facility] PRN Reason: Protocol Last Admin: 08/31/17 22:11 Dose: 5,000 units Ipratropium [place] (Atrovent) 0.5 mg IH [id number] [facility] Last Admin: 09/01/17 04:45 Dose: 0.5 mg Ipratropium [place] (Atrovent) 0.5 mg IH Q2H PRN PRN Reason: Shortness of Breath Levalbuterol HCl (Xopenex) 0.63 mg IH Q2H PRN PRN Reason: Shortness of Breath Last Admin: 08/31/17 11:10 Dose: 0.63 mg Levalbuterol HCl (Xopenex) 0.63 mg IH [id number] [facility] Last Admin: 09/01/17 04:45 Dose: 0.63 mg Lisinopril (Zestril) 10 mg PO DAILY [facility] Last Admin: 08/31/17 11:38 Dose: 10 mg Methylprednisolone (Solu-Medrol) 40 mg IVP Q12 [facility] Last Admin: 08/31/17 22:12 Dose: 40 mg Metoprolol Succinate (Toprol Xl) 25 mg PO DAILY [facility] Last Admin: 08/31/17 11:39 Dose: 25 mg Pantoprazole Sodium (Protonix Ec Tab) 40 mg PO 0600 [facility] Last Admin: 09/01/17 06:14 Dose: 40 mg - Labs Labs: 08/31/17 07:35 08/31/17 07:35
[2017-09-01 08:52] VITALS: RESP 20; TEMP 97.7; O2SAT 97
[2017-09-01] MEDS: MethylPREDNISolone 40 mg Vial IVP SCH (09:14)
[2017-09-01] MEDS: Metoprolol Succinate 25 mg XL Tab PO SCH (09:14)
[2017-09-01 09:20] VITALS: BP 116/75; PULSE 80
--- NOTE | 2017-09-01 14:02 | CP.PCM.DIS ---
<Joe Galeana - Last Filed: 09/01/17 19:24> Provider - Provider Date of Admission: 08/30/17 14:39 Attending physician: Sam Mckeon MD Time Spent in preparation of Discharge (in minutes): 40 Diagnosis - Discharge Diagnosis (1) Acute asthma exacerbation Status: Acute Priority: High (2) HTN (hypertension) Status: Chronic (3) HLD (hyperlipidemia) Status: Chronic Hospital Course - Lab Results Lab Results: Most Recent Lab Values WBC 9.4 10^3/ul (4.5-11.0) D 08/31/17 07:35 RBC 4.97 10^6/uL (3.5-6.1) 08/31/17 07:35 Hgb 14.8 g/dL (14.0-18.0) 08/31/17 07:35 Hct 44.1 % (42.0-52.0) 08/31/17 07:35 MCV 88.7 fl (80.0-105.0) 08/31/17 07:35 MCH 29.8 pg (25.0-35.0) 08/31/17 07:35 MCHC 33.6 g/dl (31.0-37.0) 08/31/17 07:35 RDW 13.9 % (11.5-14.5) 08/31/17 07:35 Plt Count 210 10^3/uL (120.0-450.0) 08/31/17 07:35 MPV 10.6 fl (7.0-11.0) 08/31/17 07:35 Gran % 84.4 % (50.0-68.0) H 08/31/17 07:35 Lymph % (Auto) 11.4 % (22.0-35.0) L 08/31/17 07:35 [place] % (Auto) 4.2 % (1.0-6.0) 08/31/17 07:35 Eos % (Auto) 0.0 % (1.5-5.0) L 08/31/17 07:35 Baso % (Auto) 0.0 % (0.0-3.0) 08/31/17 07:35 Gran # 7.92 (1.4-6.5) H 08/31/17 07:35 Lymph # (Auto) 1.1 (1.2-3.4) L 08/31/17 07:35 [place] # (Auto) 0.4 (0.1-0.6) 08/31/17 07:35 Eos # (Auto) 0.0 (0.0-0.7) 08/31/17 07:35 Baso # (Auto) 0.00 K/mm3 (0.0-2.0) 08/31/17 07:35 Sodium 137 mmol/L (132-148) 08/31/17 07:35 Potassium 4.7 mmol/L (3.6-5.0) 08/31/17 07:35 Chloride 101 mmol/L (98-107) 08/31/17 07:35 Carbon Dioxide 24 mmol/L (21-33) 08/31/17 07:35 Anion Gap 17 (10-20) 08/31/17 07:35 BUN 26 mg/dL (7-21) H 08/31/17 07:35 Creatinine 1.0 mg/dl (0.8-1.5) 08/31/17 07:35 Est GFR ( Amer) > 60 08/31/17 07:35 Est GFR (Non-Af Amer) > 60 08/31/17 07:35 Random Glucose 135 mg/dL (70-110) H 08/31/17 07:35 Calcium 9.3 mg/dL (8.4-10.5) 08/31/17 07:35 Magnesium 2.3 mg/dL (1.7-2.2) H 08/31/17 07:35 Total Bilirubin 0.6 mg/dL (0.2-1.3) 08/31/17 07:35 AST 22 U/L (17-59) 08/31/17 07:35 ALT 39 U/L (7-56) 08/31/17 07:35 Alkaline Phosphatase 47 U/L (38-126) 08/31/17 07:35 Lactate Dehydrogenase 494 U/L (333-699) 08/29/17 12:44 Total Creatine Kinase 391 U/L (35-230) H 08/29/17 12:44 CK-MB (CK-2) 1.5 ng/mL (0.0-3.6) 08/29/17 12:44 CK-MB (CK-2) % Cancelled 08/29/17 12:44 Troponin I < 0.01 ng/mL 08/29/17 12:44 Total Protein 7.5 g/dL (5.8-8.3) 08/31/17 07:35 Albumin 4.1 g/dL (3.0-4.8) 08/31/17 07:35 Globulin 3.4 gm/dL 08/31/17 07:35 Albumin/Globulin Ratio 1.2 (1.1-1.8) 08/31/17 07:35 Triglycerides 106 mg/dL (35-160) 08/30/17 07:00 Cholesterol 240 mg/dL (130-200) H 08/30/17 07:00 LDL Cholesterol Direct 162 mg/dL (0-129) H 08/30/17 07:00 HDL Cholesterol 56 mg/dL (29-60) 08/30/17 07:00 Procalcitonin 0.07 NG/ML (0.19-0.49) L 08/29/17 14:30 Urine Color Light yellow (YELLOW) 08/29/17 12:44 Urine Appearance Clear (CLEAR) 08/29/17 12:44 Urine pH 6.0 (4.7-8.0) 08/29/17 12:44 Ur Specific [place] 1.010 (1.005-1.035) 08/29/17 12:44 Urine Protein Negative mg/dL (<30 mg/dL) 08/29/17 12:44 Urine Glucose (UA) Negative mg/dL (NEGATIVE) 08/29/17 12:44 Urine Ketones Negative mg/dL (NEGATIVE) 08/29/17 12:44 Urine Blood Trace-intact (NEGATIVE) H 08/29/17 12:44 Urine Nitrate Negative (NEGATIVE) 08/29/17 12:44 Urine Bilirubin Negative (NEGATIVE) 08/29/17 12:44 Urine Urobilinogen 0.2 E.U./dL (<1 E.U./dL) 08/29/17 12:44 Ur Leukocyte Esterase Negative Vivian/uL (NEGATIVE) 08/29/17 12:44 Urine RBC 0 - 2 /hpf (0-2) 08/29/17 12:44 Urine WBC Negative /hpf (0-6) 08/29/17 12:44 Ur Epithelial Cells None /hpf (0-5) 08/29/17 12:44 Urine Bacteria None (NEG) 08/29/17 12:44 - Hospital Course Hospital Course: 67 year old male with a past medical history of asthma, hypertension, and hyperlipidemia was seen in the ED and admitted on 08/29/17 for sob 2/2 acute asthma exacerbation. In the ED lung auscultation revealed diffuse wheezing. A chest XR ordered was negative. An ECG showed sinus tachycardia but no other abnormalities. Initial blood work was significant for elevated eosinophils suggestive of atopic asthma. Patient has no previous hospitalizations for asthma. He was previously on an albuterol inhaler PRN. While admitted he received Xopenex and Atrovent nebulizers as well as Solumedrol. His hypertension was managed with Lisinopril and Metoprolol with most BP readings stable. Additionally the patient complained of left flank pain. He underwent a CT abdomen pelvis which showed no nephrolithiasis or other acute findings. Patient was seen today at bedside. The patient's expiratory wheezing is markedly improved. He will be discharged home with an albuterol inhaler, daily Advair inhaler, PO 10 day oral prednisone taper, Pepcid, and Lipitor. Upon discharge, patient's son was at bedside, treatment plan and follow up plan were explained to patient, and son. He will follow up with his PCP Peter Schmitt TE[facility] next week for a recheck. All questions were answered and the patient is agreeable with this plan. - Date & Time of H&P Date of H&P: 08/29/17 Time of H&P: 16:23 Discharge Exam - Head Exam Head Exam: ATRAUMATIC, NORMOCEPHALIC - Eye Exam Eye Exam: EOMI, PERRL. absent: Scleral icterus - ENT Exam ENT Exam: Mucous Membranes Moist - Respiratory Exam Respiratory Exam: Prolonged Expiratory Phase, Rhonchi (R middle/ lower lobe; minimal), Wheezes (expiratory; diffuse; relatively improved from day prior). absent: Respiratory Distress - Cardiovascular Exam Cardiovascular Exam: RRR, +S1, +S2. absent: Diastolic murmur, Systolic Murmur - GI/Abdominal Exam GI & Abdominal Exam: Soft. absent: Tenderness - Extremities Exam Extremities exam: normal inspection, pedal pulses present (2+ TP/DP BL) - Back Exam Back exam: absent: CVA tenderness (L), CVA tenderness (R) - Neurological Exam Neurological exam: Alert, CN II-XII Intact, Oriented x3 - Psychiatric Exam Psychiatric exam: Normal Affect, Normal Mood - Skin Skin Exam: Dry, Intact, Warm Discharge Plan - Discharge Medications Prescriptions: Albuterol HFA [Ventolin HFA 90 mcg/actuation (8 g)] 2 puff IH [id number] PRN #1 unit PRN Reason: wheeze Atorvastatin [Lipitor] 40 mg PO DIN 14 Days #14 tab Fluticasone/Salmeterol 100/50 [Advair Diskus 100/50] 1 dsk IH BID #1 puff predniSONE [Prednisone] See Taper PO DAILY #10 tab - Follow Up Plan Condition: FAIR Disposition: HOME/ ROUTINE Instructions: Asthma (DC), Asthma (GEN) Additional Instructions: 1. Please follow up w/ primary care provider Keshia Green NP within 7 days. 2. For further management of your asthma please discuss following up with a pulmonolgist with your primary. 2. Please go to nearest ED if wheezing/ SOB begins worsening 3. Start taking the following medications: Albuterol/Ventol inhaler PRN, Advair diskus 1 puff daily for asthma exacerbation 4. Start taking prednisone taper as written for 10 days total for asthma exacerbation; PLEASE FOLLOW TAPER INSTRUCTIONS PROVIDED WITH MEDICATION 40mg daily x 3days, 20mg daily x 3days, 10mg daily x 2days, 5mg daily x2 days 5. Continue taking: Aspirin 325 daily, Famotidine 20 daily, Lisinopril 10 daily , Metoprolol 25 daily, Atorvastatin 40 nightly, 6. Patient was educated on inhaler use 7. All instructions were communicated to patient with son at bedside. <Sam Mckeon - Last Filed: 09/02/17 12:33> Provider - Provider Date of Admission: 08/30/17 14:39 Attending physician: Sam Mckeon MD Hospital Course - Lab Results Lab Results: Most Recent Lab Values WBC 9.4 10^3/ul (4.5-11.0) D 08/31/17 07:35 RBC 4.97 10^6/uL (3.5-6.1) 08/31/17 07:35 Hgb 14.8 g/dL (14.0-18.0) 08/31/17 07:35 Hct 44.1 % (42.0-52.0) 08/31/17 07:35 MCV 88.7 fl (80.0-105.0) 08/31/17 07:35 MCH 29.8 pg (25.0-35.0) 08/31/17 07:35 MCHC 33.6 g/dl (31.0-37.0) 08/31/17 07:35 RDW 13.9 % (11.5-14.5) 08/31/17 07:35 Plt Count 210 10^3/uL (120.0-450.0) 08/31/17 07:35 MPV 10.6 fl (7.0-11.0) 08/31/17 07:35 Gran % 84.4 % (50.0-68.0) H 08/31/17 07:35 Lymph % (Auto) 11.4 % (22.0-35.0) L 08/31/17 07:35 [place] % (Auto) 4.2 % (1.0-6.0) 08/31/17 07:35 Eos % (Auto) 0.0 % (1.5-5.0) L 08/31/17 07:35 Baso % (Auto) 0.0 % (0.0-3.0) 08/31/17 07:35 Gran # 7.92 (1.4-6.5) H 08/31/17 07:35 Lymph # (Auto) 1.1 (1.2-3.4) L 08/31/17 07:35 [place] # (Auto) 0.4 (0.1-0.6) 08/31/17 07:35 Eos # (Auto) 0.0 (0.0-0.7) 08/31/17 07:35 Baso # (Auto) 0.00 K/mm3 (0.0-2.0) 08/31/17 07:35 Sodium 137 mmol/L (132-148) 08/31/17 07:35 Potassium 4.7 mmol/L (3.6-5.0) 08/31/17 07:35 Chloride 101 mmol/L (98-107) 08/31/17 07:35 Carbon Dioxide 24 mmol/L (21-33) 08/31/17 07:35 Anion Gap 17 (10-20) 08/31/17 07:35 BUN 26 mg/dL (7-21) H 08/31/17 07:35 Creatinine 1.0 mg/dl (0.8-1.5) 08/31/17 07:35 Est GFR ( Amer) > 60 08/31/17 07:35 Est GFR (Non-Af Amer) > 60 08/31/17 07:35 Random Glucose 135 mg/dL (70-110) H 08/31/17 07:35 Calcium 9.3 mg/dL (8.4-10.5) 08/31/17 07:35 Magnesium 2.3 mg/dL (1.7-2.2) H 08/31/17 07:35 Total Bilirubin 0.6 mg/dL (0.2-1.3) 08/31/17 07:35 AST 22 U/L (17-59) 08/31/17 07:35 ALT 39 U/L (7-56) 08/31/17 07:35 Alkaline Phosphatase 47 U/L (38-126) 08/31/17 07:35 Lactate Dehydrogenase 494 U/L (333-699) 08/29/17 12:44 Total Creatine Kinase 391 U/L (35-230) H 08/29/17 12:44 CK-MB (CK-2) 1.5 ng/mL (0.0-3.6) 08/29/17 12:44 CK-MB (CK-2) % Cancelled 08/29/17 12:44 Troponin I < 0.01 ng/mL 08/29/17 12:44 Total Protein 7.5 g/dL (5.8-8.3) 08/31/17 07:35 Albumin 4.1 g/dL (3.0-4.8) 08/31/17 07:35 Globulin 3.4 gm/dL 08/31/17 07:35 Albumin/Globulin Ratio 1.2 (1.1-1.8) 08/31/17 07:35 Triglycerides 106 mg/dL (35-160) 08/30/17 07:00 Cholesterol 240 mg/dL (130-200) H 08/30/17 07:00 LDL Cholesterol Direct 162 mg/dL (0-129) H 08/30/17 07:00 HDL Cholesterol 56 mg/dL (29-60) 08/30/17 07:00 Procalcitonin 0.07 NG/ML (0.19-0.49) L 08/29/17 14:30 Urine Color Light yellow (YELLOW) 08/29/17 12:44 Urine Appearance Clear (CLEAR) 08/29/17 12:44 Urine pH 6.0 (4.7-8.0) 08/29/17 12:44 Ur Specific [place] 1.010 (1.005-1.035) 08/29/17 12:44 Urine Protein Negative mg/dL (<30 mg/dL) 08/29/17 12:44 Urine Glucose (UA) Negative mg/dL (NEGATIVE) 08/29/17 12:44 Urine Ketones Negative mg/dL (NEGATIVE) 08/29/17 12:44 Urine Blood Trace-intact (NEGATIVE) H 08/29/17 12:44 Urine Nitrate Negative (NEGATIVE) 08/29/17 12:44 Urine Bilirubin Negative (NEGATIVE) 08/29/17 12:44 Urine Urobilinogen 0.2 E.U./dL (<1 E.U./dL) 08/29/17 12:44 Ur Leukocyte Esterase Negative Vivian/uL (NEGATIVE) 08/29/17 12:44 Urine RBC 0 - 2 /hpf (0-2) 08/29/17 12:44 Urine WBC Negative /hpf (0-6) 08/29/17 12:44 Ur Epithelial Cells None /hpf (0-5) 08/29/17 12:44 Urine Bacteria None (NEG) 08/29/17 12:44 Attending/Attestation - Attestation I have personally seen and examined this patient.: Yes I have fully participated in the care of the patient.: Yes I have reviewed all pertinent clinical information, including history, physical exam and plan: Yes Notes (Text): 09/02/17 12:31 Medical record note made by the resident after discussion with my direction and input after the patient was personally seen and examined by me. I have reviewed the chart and agree that the record accurately reflects by personal performance of the history, physical exam, data review, and medical decision-making, in the course for the patient. I have also personally directed the plan of care. 67 M with history hypertension, hyperlipidemia, asthma (never intubated), who presents with complaints of shortness of breath and productive cough for ten days found to be wheezing on physical examination, (acute asthma exacerbation), has responded well to Neb/Steroid and antibiotics.Cough and dyspnea has improved.Patient is ambulatory and is feeling close to base line. Patient will be discharged home and will follow up with [facility] clinic. Management plan was discussed in detail with patient. Education was provided
== END 2017-09-01 16:34 | disposition home or self-care (01) | DRG 203 ==
LOC: ED 12:18 → ERH 13:28 → 5RSO 15:03 → OBSVTOIN 08-30 14:39
PROVIDERS: ADMIT Internal Medicine; ATTEND Internal Medicine
DX: J45.901 Unspecified asthma with (acute) exacerbation (principal); I10 Essential (primary) hypertension; E78.5 Hyperlipidemia, unspecified; K21.9 Gastro-esophageal reflux disease without esophagitis; Z87.891 Personal history of nicotine dependence